=== PATIENT | male | born 1980 | race Caucasian/White ===

== ENCOUNTER 2019-05-03 10:16 | Emergency (ER) | payer SELFPAY ==
[~2019-05-03] VITALS: Ht 170.2 cm; Wt 84.8 kg
[2019-05-03 10:25] VITALS: Ht 170.2 cm; Wt 84.8 kg
[2019-05-03 14:02] VITALS: BP 156/94
[2019-05-06 06:10] LABS: RAPID PLASMA REAGIN Non Reactive (Non Reactive)
== END 2019-05-03 14:02 | disposition left against medical advice (07) ==
LOC: ED 10:16
PROVIDERS: Emergency Medicine
DX: N34.2 Other urethritis (principal); M79.621 Pain in right upper arm; M79.631 Pain in right forearm
CPT/HCPCS: 87491; 87591